=== PATIENT | female | born 2000 ===

== ENCOUNTER 2022-09-06 23:13 | Emergency (ER) | payer BC, OTHER ==
[~2022-09-06] VITALS: Ht 152.4 cm; Wt 52.6 kg
[2022-09-07] MEDS ORDERED: LACTATED RINGERS 1,000 ML IV ONE
--- NOTE | 2022-09-07 | ED General ---
General Stated Complaint: FEVER/BODYACHES/SORE THROAT Source of Information: Patient History of Present Illness Date Seen by Provider: Sep 06, 2022 Time Seen by Provider: 22:43 Initial Comments PT ARRIVES VIA POV FROM HOME WITH A MALE PT STATES SHE HAS BEEN SICK SINCE MONDAY NIGHT 09/04/22: -FEVER UP TO 104 -SORE THROAT -EARS POPPING -HEADACHE -BODY ACHES NO COUGH OR SHORTNESS OF BREATH NO DIFFICULTY SWALLOWING NO NAUSEA/VOMITING/DIARRHEA SHE HAS TAKEN DAYQUIL AND NYQUIL SHE HAS NOT TAKEN TYLENOL OR IBUPROFEN WENT TO [facility] TODAY AND TESTED FOR STREP--PT STATES IT WAS NEGATIVE. NO OTHER TESTS WERE DONE SHE WAS PRESCRIBED CEFUROXIME LMP 08/07/-08/13/22. ON OCP'S NO CHRONIC MEDICAL PROBLEMS SHE DENIES SMOKING OR VAPING, DENIES DRUG USE, OCCASIONAL ETOH [facility] Allergies and Home Medications Allergies Coded Allergies: tree nut (Verified Allergy, Unknown, 09/06/22) Review of Systems Review of Systems Constitutional: see HPI, fever EENTM: see HPI, ear pain, throat pain Respiratory: no symptoms reported; No cough, No short of breath Cardiovascular: no symptoms reported Gastrointestinal: no symptoms reported Genitourinary: no symptoms reported : No LMP: Aug 07, 2022 Musculoskeletal: see HPI (BODY ACHES) Skin: no symptoms reported Psychiatric/Neurological: See HPI, Headache Physical Exam Vital Signs Vital Signs - First Documented 09/06/22 23:40 Temp 39.0 Pulse 125 Resp 18 B/P (MAP) 110/73 (85) Pulse Ox 96 O2 Delivery Room Air Capillary Refill : Height, Weight, BMI Height: '" Weight: lbs. oz. kg; BMI Method: Focused Exam Lactate Level 09/06/22 00:00: Lactic Acid Level 0.93 Lactic Acid Level Laboratory Tests Test 09/06/22 00:00 Lactic Acid Level 0.93 MMOL/L (0.50-2.00) Progress/Results/Core Measures Suspected Sepsis SIRS Temperature: Pulse: Respiratory Rate: Laboratory Tests 09/06/22 23:49: White Blood Count 10.3 Blood Pressure / Mean: 09/06/22 00:00: Lactic Acid Level 0.93 Laboratory Tests 09/06/22 00:00: Creatinine 0.73, Total Bilirubin 0.2 09/06/22 23:49: Platelet Count 329 Results/Orders Lab Results Laboratory Tests Test 09/06/22 00:00 09/06/22 00:02 09/06/22 23:49 09/07/22 00:31 Range/Units Sodium Level 136 135-145 MMOL/L Potassium Level 3.4 L 3.6-5.0 MMOL/L Chloride Level 104 98-107 MMOL/L Carbon Dioxide Level 21 21-32 MMOL/L Anion Gap 11 5-14 MMOL/L Blood Urea Nitrogen 6 L 7-18 MG/DL Creatinine 0.73 0.60-1.30 MG/DL Estimat Glomerular Filtration Rate 120 BUN/Creatinine Ratio 8 Glucose Level 118 H 70-105 MG/DL Lactic Acid Level 0.93 0.50-2.00 MMOL/L Calcium Level 8.8 8.5-10.1 MG/DL Corrected Calcium 8.7 8.5-10.1 MG/DL Total Bilirubin 0.2 0.1-1.0 MG/DL Aspartate Amino Transf (AST/SGOT) 15 5-34 U/L Alanine Aminotransferase (ALT/SGPT) 11 0-55 U/L Alkaline Phosphatase 71 40-136 U/L Total Protein 7.6 6.4-8.2 GM/DL Albumin 4.1 3.2-4.5 GM/DL Monoscreen NEGATIVE NEGATIVE Influenza Type A (RT-PCR) Not Detected Not Detecte Influenza Type B (RT-PCR) Not Detected Not Detecte SARS-CoV-2 RNA (RT-PCR) Not Detected Not Detecte Group A Streptococcus Screen NEGATIVE NEGATIVE White Blood Count 10.3 4.3-11.0 10^3/uL Red Blood Count 4.64 3.80-5.11 10^6/uL Hemoglobin 13.5 11.5-16.0 g/dL Hematocrit 39 35-52 % Mean Corpuscular Volume 84 80-99 fL Mean Corpuscular Hemoglobin 29 25-34 pg Mean Corpuscular Hemoglobin Concent 35 32-36 g/dL Red Cell Distribution Width 11.6 10.0-14.5 % Platelet Count 329 130-400 10^3/uL Mean Platelet Volume 9.4 9.0-12.2 fL Immature Granulocyte % (Auto) 0 % Neutrophils (%) (Auto) 80 H 42-75 % Lymphocytes (%) (Auto) 11 L 12-44 % Monocytes (%) (Auto) 8 0-12 % Eosinophils (%) (Auto) 0 0-10 % Basophils (%) (Auto) 0 0-10 % Neutrophils # (Auto) 8.3 H 1.8-7.8 10^3/uL Lymphocytes # (Auto) 1.1 1.0-4.0 10^3/uL Monocytes # (Auto) 0.8 0.0-1.0 10^3/uL Eosinophils # (Auto) 0.0 0.0-0.3 10^3/uL Basophils # (Auto) 0.0 0.0-0.1 10^3/uL Immature Granulocyte # (Auto) 0.0 0.0-0.1 10^3/uL Urine Color YELLOW Urine Clarity SL CLOUDY Urine pH 6.5 5-9 Urine Specific [place] 1.015 L 1.016-1.022 Urine Protein 2+ H NEGATIVE Urine Glucose (UA) NEGATIVE NEGATIVE Urine Ketones 1+ H NEGATIVE Urine Nitrite NEGATIVE NEGATIVE Urine Bilirubin NEGATIVE NEGATIVE Urine Urobilinogen 1.0 < = 1.0 MG/DL Urine Leukocyte Esterase 2+ H NEGATIVE Urine RBC (Auto) TRACE-I H NEGATIVE Urine RBC RARE /HPF Urine WBC 10-25 H /HPF Urine Squamous Epithelial Cells 2-5 /HPF Urine Crystals NONE /LPF Urine Bacteria NEGATIVE /HPF Urine Casts NONE /LPF Urine Mucus SMALL H /LPF Urine Culture Indicated CULTURE PENDING My Orders Orders - RACHEL KAUFMAN DO Rapid Strep A Screen (09/06/22 23:43) Covid 19 Inhouse Test (09/06/22 23:43) Influenza A And B By Pcr (09/06/22 23:43) Isolation Central Supply Req (09/06/22 23:43) Ed Iv/Invasive Line Start (09/06/22 23:49) Urine Bedside (09/06/22 23:49) Monitor-Rhythm Ecg Trace Only (09/06/22 23:49) Cbc With Automated Diff (09/06/22 23:49) Comprehensive Metabolic Panel (09/06/22 23:49) Lactic Acid Analyzer (09/06/22 23:49) Monotest (09/06/22 23:49) Ua Culture If Indicated (09/06/22 23:49) Blood Culture (09/06/22 23:49) Ed Iv/Invasive Line Start (09/06/22 23:49) Lactated Ringers (Lr 1000 Ml Iv Solution (09/07/22 00:00) Urine Culture (09/06/22 23:49) Ed Iv/Invasive Line Start (09/06/22 23:49) Vital Signs Adult Sepsis Patie Q15M (09/06/22 23:49) Remove Rings In Anticipation O (09/06/22 23:49) Acetaminophen Tablet (Tylenol Tablet) (09/07/22 00:12) Ibuprofen Tablet (Motrin Tablet) (09/07/22 00:12) Throat Culture Strep A Confirm (09/06/22 00:02) Ceftriaxone 1 Gm Pre-Mix (Rocephin 1 Gm (09/07/22 01:15) Medications Given in ED Current Medications Medications Dose Ordered Sig/Hayley Route Start Time Stop Time Status Last Admin Dose Admin Acetaminophen 500 mg STK-MED ONCE .ROUTE 09/07/22 00:12 09/07/22 00:15 DC 09/07/22 00:20 500 MG Ibuprofen 800 mg STK-MED ONCE PO 09/07/22 00:12 09/07/22 00:15 DC 09/07/22 00:20 800 MG Lactated Ringer's 1,000 ml @ 0 mls/hr Q0M ONCE IV 09/07/22 00:00 09/07/22 00:01 DC 09/07/22 00:01 0 MLS/HR Vital Signs/I&O 09/06/22 09/06/22 09/07/22 09/07/22 23:40 23:40 00:20 00:20 Temp 39.0 39.0 39.0 Pulse 125 Resp 18 B/P (MAP) 110/73 (85) Pulse Ox 96 O2 Delivery Room Air Room Air Capillary Refill : Departure Impression Primary Impression: Pharyngitis Additional Impression: UTI (urinary tract infection) Disposition: HOME, SELF-CARE Condition: Improved Departure-Patient Inst. Decision time for Depature: 01:10 Referrals: [facility] (PCP) Primary Care Physician Patient Instructions: Urinary Tract Infection, Adult ED, Sore Throat, Adult ED Add. Discharge Instructions: LOTS OF CLEAR LIQUIDS--WATER, BROTH, JELLO, GATORADE TYLENOL 1 GRAM PLUS MOTRIN 800 MG 4 TIMES A DAY FOR PAIN OR FEVER FREQUENT SALT WATER GARGLES STOP YOUR CURRENT ANTIBIOTIC AND START TAKING THE NEW ANTIBIOTIC THIS MORNING FOLLOW UP WITH [facility] IN 3-4 DAYS IF NO BETTER, RETURN TO ER IF WORSE Scripts Prednisone (Prednisone) 20 Mg Tab 40 MG PO DAILY, #6 TAB 0 Refills Prov: RACHEL KAUFMAN DO 09/07/22 Cefdinir (Cefdinir) 300 Mg Capsule 300 MG PO BID, #20 CAP Prov: RACHEL KAUFMAN DO 09/07/22 Work/School Note: School/Childcare Release Date Seen in the Emergency Department: Sep 06, 2022 Return to School: Sep 09, 2022 RACHEL KAUFMAN DO Sep 07, 2022 00:00
[2022-09-07] MEDS ORDERED: ACETAMINOPHEN 500 MG TAB (TYLENOL) ONE (00:12)
[2022-09-07] MEDS ORDERED: IBUPROFEN 800 MG (MOTRIN) TAB PO ONE (00:12)
[2022-09-07 00:14] LABS: BASOPHILS % (AUTO) 0 % (0-10); EOSINOPHILS % (AUTO) 0 % (0-10); HEMATOCRIT 39 % (35-52); HEMOGLOBIN 13.5 g/dL (11.5-16.0); LYMPHOCYTES # (AUTO) 1.1 10^3/uL (1.0-4.0); LYMPHOCYTES % (AUTO) 11 % (12-44); MEAN CORPUSCULAR HEMOGLOBIN 29 pg (25-34); MEAN CORPUSCULAR HGB CONC 35 g/dL (32-36); MEAN CORPUSCULAR VOLUME 84 fL (80-99); MEAN PLATELET VOLUME 9.4 fL (9.0-12.2); MONOCYTES # (AUTO) 0.8 10^3/uL (0.0-1.0); MONOCYTES % (AUTO) 8 % (0-12); NEUTROPHILS # (AUTO) 8.3 10^3/uL (1.8-7.8); NEUTROPHILS % (AUTO) 80 % (42-75); PLATELET COUNT 329 10^3/uL (130-400); WHITE BLOOD COUNT 10.3 10^3/uL (4.3-11.0)
[2022-09-07 00:23] LABS: ALBUMIN 4.1 GM/DL (3.2-4.5); POTASSIUM 3.4 MMOL/L (3.6-5.0)
[2022-09-07 00:25] LABS: CALCIUM 8.8 MG/DL (8.5-10.1)
[2022-09-07 00:26] LABS: TOTAL PROTEIN 7.6 GM/DL (6.4-8.2)
[2022-09-07 00:27] LABS: BILIRUBIN,TOTAL 0.2 MG/DL (0.1-1.0)
[2022-09-07 00:29] LABS: CREATININE SERUM 0.73 MG/DL (0.60-1.30)
[2022-09-07 00:56] LABS: BILIRUBIN,URINE NEGATIVE (NEGATIVE); CLARITY,URINE SL CLOUDY; COLOR,URINE YELLOW; GLUCOSE, URINE (UA) NEGATIVE (NEGATIVE); KETONES,URINE 1+ (NEGATIVE); LEUKOCYTE ESTERASE ,URINE 2+ (NEGATIVE); NITRITE,URINE NEGATIVE (NEGATIVE); PH,URINE 6.5 (5-9); PROTEIN,URINE 2+ (NEGATIVE)
[2022-09-07 01:03] LABS: BACTERIA,URINE NEGATIVE /HPF; RBC,URINE RARE /HPF
[2022-09-07] MEDS ORDERED: cefTRIAXone 1 GM PRE-MIX 50 ML IV ONE (01:15)
[2022-09-07] MEDS ORDERED: CEFD300C3 PO (01:19)
[2022-09-07] MEDS ORDERED: PRD20T PO (01:19)
[2022-09-07 02:00] VITALS: BP 104/64
== END 2022-09-07 02:00 | disposition home or self-care (01) ==
LOC: ER 23:18
DX: J02.9 Acute pharyngitis, unspecified (principal); N39.0 Urinary tract infection, site not specified; Z20.822 Contact with and (suspected) exposure to COVID-19
CPT/HCPCS: 36415; 80053; 81000; 83605; 84703; 85025; 86308; 87040; 87088; 87430; 87636; 93041